=== PATIENT | male | born 1930 | race Hispanic/Latino ===

== ENCOUNTER 2017-10-14 11:28 | Emergency (ER) | payer MEDICARE, MEDICAID ==
[~2017-10-14] VITALS: Ht 177.8 cm; Wt 79.4 kg
[2017-10-14 11:37] VITALS: BP 121/96
--- NOTE | 2017-10-14 11:42 | Emergency Room Report ---
History of Present Illness General Chief Complaint: Chest Pain Source: EMS Present Illness HPI Patient is an 87-year-old male brought in by EMS after increased chest pain. Patient was noted to have chest pain started earlier in the day. Patient had been given 2 sprays of nitroglycerin as well as aspirin by EMS with some improvement. Patient reports having previous choking sensation associated with shortness of breath. Patient was noted be bedridden. [facility] a [facility]. He denies any fever or cough. He denies any changes in the pain with position or deep breath. Allergies: Coded Allergies: No Known Allergies (Unverified , 10/14/17) Patient History Past Medical History: see triage record Reviewed Nursing Documentation: PMH: Agreed; PSxH: Agreed Review of Systems All Other Systems: limited - by poor historian Physical Exam Vital Signs Date Time Temp Pulse Resp B/P (MAP) Pulse Ox O2 Delivery O2 Flow Rate FiO2 10/14/17 11:21 72 20 121/96 99 Room Air General Appearance: alert, Chronically Ill Head: normocephalic ENT: dry mucus membranes Neck: limited range of motion Respiratory: lungs clear, normal breath sounds, no rhonchi, no respiratory distress Cardiovascular #1: regular rate, rhythm, slow capillary refill - left foot pink slight delay Gastrointestinal: normal bowel sounds, non tender, soft, no mass Musculoskeletal: back normal Neurologic: alert, responsive, motor weakness, other - dysarthric Psychiatric: normal inspection, depressed affect Skin: no rash Medical Decision Making Diagnostic Impression: Primary Impression: Chest pain Additional Impressions: ACS (acute coronary syndrome) CHF (congestive heart failure) Pulmonary embolism ER Course Patient presented for chest pain. Differential diagnosis included but was not limited to acute coronary syndrome, pulmonary embolism, pneumonia, aortic dissection, shingles, pneumothorax, aortic dissection, esophageal rupture, pericarditis. 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 The small filling defect was noted in the left upper pulmonary artery consistent with small segmental pulmonary embolism. Trace pericardial effusion was noted . the patient was given Lovenox. The patient's care was discussed with [facility] capitated physician Dr. Persaud for transfer for continuity of care. Labs Test 10/14/17 12:00 White Blood Count 7.9 K/UL (4.8-10.8) Red Blood Count 3.34 M/UL (4.70-6.10) Hemoglobin 8.9 G/DL (14.2-18.0) Hematocrit 28.0 % (42.0-52.0) Mean Corpuscular Volume 84 FL (80-99) Mean Corpuscular Hemoglobin 26.7 PG (27.0-31.0) Mean Corpuscular Hemoglobin Concent 31.9 G/DL (32.0-36.0) Red Cell Distribution Width 15.3 % (11.6-14.8) Platelet Count 410 K/UL (150-450) Mean Platelet Volume 6.3 FL (6.5-10.1) Neutrophils (%) (Auto) 73.5 % (45.0-75.0) Lymphocytes (%) (Auto) 12.4 % (20.0-45.0) Monocytes (%) (Auto) 12.4 % (1.0-10.0) Eosinophils (%) (Auto) 1.2 % (0.0-3.0) Basophils (%) (Auto) 0.5 % (0.0-2.0) Prothrombin Time 11.4 SEC (9.30-11.50) Prothromb Time International Ratio 1.1 (0.9-1.1) Activated Partial Thromboplast Time 31 SEC (23-33) Sodium Level 138 MMOL/L (136-145) Potassium Level 3.6 MMOL/L (3.5-5.1) Chloride Level 105 MMOL/L (98-107) Carbon Dioxide Level 23 MMOL/L (21-32) Anion Gap 10 mmol/L (5-15) Blood Urea Nitrogen 13 mg/dL (7-18) Creatinine 1.5 MG/DL (0.55-1.30) Estimat Glomerular Filtration Rate mL/min (>60) Glucose Level 111 MG/DL (74-106) Lactic Acid Level 1.30 mmol/L (0.4-2.0) Calcium Level 8.3 MG/DL (8.5-10.1) Phosphorus Level 3.4 MG/DL (2.5-4.9) Magnesium Level 2.0 MG/DL (1.8-2.4) Total Bilirubin 0.3 MG/DL (0.2-1.0) Aspartate Amino Transf (AST/SGOT) 16 U/L (15-37) Alanine Aminotransferase (ALT/SGPT) 12 U/L (12-78) Alkaline Phosphatase 63 U/L (46-116) Total Creatine Kinase 44 U/L (26-308) Creatine Kinase MB 2.0 NG/ML (0.0-3.6) Creatine Kinase MB Relative Index 4.5 Troponin I 0.028 ng/mL (0.000-0.056) Pro-B-Type Natriuretic Peptide 1978 pg/mL (0-125) Total Protein 6.5 G/DL (6.4-8.2) Albumin 2.4 G/DL (3.4-5.0) Globulin 4.1 g/dL Albumin/Globulin Ratio 0.6 (1.0-2.7) Lipase 77 U/L (73-393) EKG Diagnostic Results Rate: normal Rhythm: NSR ST Segments: other - anterior twave inversion Rhythm Strip Diag. Results EP Interpretation: yes Rhythm: NSR, no PVC's, no ectopy Last Vital Signs Date Time Temp Pulse Resp B/P (MAP) Pulse Ox O2 Delivery O2 Flow Rate FiO2 10/14/17 11:21 72 20 121/96 99 Room Air Status: unchanged Disposition: ADMITTED INPATIENT Condition: Serious Micky Spain MD Oct 14, 2017 11:42
[2017-10-14] MEDS ORDERED: Sodium Chloride 500ML 500 ML IV ONE (11:45)
[2017-10-14] MEDS ORDERED: Isovue-370 150ml vial INJ PRN (12:00)
[2017-10-14 12:16] LABS: BASOPHILS % (AUTO) 0.5 % (0.0-2.0); EOSINOPHILS % (AUTO) 1.2 % (0.0-3.0); HEMOGLOBIN 8.9 G/DL (14.2-18.0); LYMPHOCYTES % (AUTO) 12.4 % (20.0-45.0); MEAN CORPUSCULAR VOLUME 84 FL (80-99); MONOCYTES % (AUTO) 12.4 % (1.0-10.0); NEUTROPHILS % (AUTO) 73.5 % (45.0-75.0); PLATELET COUNT 410 K/UL (150-450); RED BLOOD COUNT 3.34 M/UL (4.70-6.10); RED CELL DISTRIBUTION WIDTH 15.3 % (11.6-14.8); WHITE BLOOD COUNT 7.9 K/UL (4.8-10.8)
[2017-10-14 12:21] LABS: INR 1.1 (0.9-1.1)
[2017-10-14 12:24] LABS: ANION GAP 10 mmol/L (5-15); BLOOD UREA NITROGEN 13 mg/dL (7-18); CALCIUM 8.3 MG/DL (8.5-10.1); CARBON DIOXIDE 23 MMOL/L (21-32); CHLORIDE 105 MMOL/L (98-107); CREATININE 1.5 MG/DL (0.55-1.30); POTASSIUM 3.6 MMOL/L (3.5-5.1); SODIUM 138 MMOL/L (136-145)
[2017-10-14 12:36] LABS: ALANINE AMINOTRANSFERASE 12 U/L (12-78); ALBUMIN 2.4 G/DL (3.4-5.0); ALBUMIN/GLOBULIN RATIO 0.6 (1.0-2.7); ALKALINE PHOSPHATASE 63 U/L (46-116); ASPARTATE AMINO TRANSFERASE 16 U/L (15-37); BILIRUBIN,TOTAL 0.3 MG/DL (0.2-1.0); CREATINE KINASE 44 U/L (26-308); PHOSPHORUS 3.4 MG/DL (2.5-4.9)
[2017-10-14 13:20] VITALS: BP 114/76
[2017-10-14] MEDS ORDERED: Pantoprazole Inj IVP ONE (14:30)
[2017-10-14 15:35] VITALS: BP 118/82
--- NOTE | 2017-10-14 16:35 | Diagnostic Imaging Report ---
EXAM: CT Angiography Chest With Intravenous Contrast CLINICAL HISTORY: CP TECHNIQUE: Axial computed tomographic angiography images of the chest with intravenous contrast using pulmonary embolism protocol. CTDI is 19.42 mGy and DLP is 582 mGy-cm. One or more of the following dose reduction techniques were used: automated exposure control, adjustment of the mA and/or kV according to patient size, use of iterative reconstruction technique. MIP reconstructed images were created and reviewed. Coronal and sagittal reformatted images were created and reviewed. COMPARISON: No relevant prior studies available. FINDINGS: Pulmonary arteries: Small filling defect anteroinferior left upper lobe pulmonary artery consistent with a small segmental pulmonary embolism. Axial images 80 and 81, coronal images 49 and 50. Aorta: Mild atherosclerotic vascular disease. No thoracic aortic aneurysm. Lungs: Bilateral lower lobe atelectasis/consolidations. Pleural space: Unremarkable. No significant effusion. No pneumothorax. Heart: Trace pericardial effusion. Coronary artery disease. No evidence of RV dysfunction. Bones/joints: Degenerative changes of bilateral shoulders. Degenerative changes of the spine. No acute fracture. No dislocation. Soft tissues: Unremarkable. Lymph nodes: Unremarkable. No enlarged lymph nodes. Gallbladder and bile ducts: Gallstones. 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 No obstruction. IMPRESSION: 1. Small filling defect anteroinferior left upper lobe pulmonary artery consistent with a small segmental pulmonary embolism. Axial images 80 and 81, coronal images 49 and 50. 2. Bilateral lower lobe atelectasis/consolidations. 3. Trace pericardial effusion. 4. 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 No obstruction. 5. Gallstones. Critical [employer] 10/14/17 16:36 Call Doctor Regarding Pulmonary Embolism, called Grabiel Leone MD on 10/14 16:36 (-07:00)
[2017-10-14 16:38] LABS: APPEARANCE,URINE CLEAR; BILIRUBIN, URINE NEGATIVE (NEGATIVE); COLOR,URINE PALE YELLOW; GLUCOSE, URINE (UA) NEGATIVE (NEGATIVE); KETONES,URINE NEGATIVE (NEGATIVE); LEUKOCYTE ESTERASE ,URINE 1+ (NEGATIVE); NITRITE,URINE POSITIVE (NEGATIVE); PH,URINE 6 (4.5-8.0); PROTEIN,URINE NEGATIVE (NEGATIVE); UROBILINOGEN,URINE NORMAL MG/DL (0.0-1.0)
[2017-10-14 16:47] VITALS: BP 121/66
[2017-10-14] MEDS ORDERED: Enoxaparin 80mg Inj SUBQ SCH (17:00)
[2017-10-14 18:46] VITALS: BP 103/60
--- NOTE | 2017-10-15 08:23 | Diagnostic Imaging Report ---
Indication: Shortness of breath Technique: One view of the chest Comparison: none Findings: Lungs are somewhat hyperinflated. There is some scarring or atelectasis in the right perihilar region. Retrocardiac lucency could represent a hiatal hernia. The left costophrenic angle is blunted, small effusion possible. The heart is borderline enlarged. Impression: Borderline cardiomegaly Possible left pleural effusion Suspect hiatal hernia
== END 2017-10-14 18:48 | disposition short-term general hospital (02) ==
LOC: EDBD 11:28 → EMR 13:16 → EDBEDREQ 13:21 → EMR 18:48
DX: I24.9 Acute ischemic heart disease, unspecified (principal); I50.9 Heart failure, unspecified; I26.99 Other pulmonary embolism without acute cor pulmonale; R78.81 Bacteremia
CPT/HCPCS: 36415; 71045; 71275; 80053; 81003; 82550; 82553; 83605; 83690; 83735; 83880; 84100; 84484; 85025; 85610; 85730; 87040; 87086; 87181; 93005; 99285; C9113; J1650; J1940; J7040; Q9967